=== PATIENT | female | born 1965 | race Caucasian/White ===

== ENCOUNTER → 2017-07-07 | Outpatient (CLI) | payer OTHER ==
[~2017-07-07] MED LIST: ACET500; ALBU90OI INH; ALLO100 PO; ALPR.5; AMOX500 PO; ATEN50 PO; AZIT250 PO; AZO; Adderall 20 MG20 MG PO; CARI350 PO; CEPH500 PO; CHLGLU.12S MT; CIPR500 PO; CLAR250 PO; CLON.5; CLON1; CLON1 PO; CODBUTASA PO; CRUTCH4 USE; CYCL10 PO; DOCU100 PO; DOXY100 PO; DULO60; GABA300 PO; HYDACE10B PO; HYDACE5 PO; HYDMOR2 PO; HYOS.125; IBUP600; IBUP600 PO; IBUP800 PO; LITH300C PO; LITHIUM; MELO7.5 PO; META800 PO; METO25ER; METO25ER PO; METO50ER; METR500 PO; MULVITMINE PO; NAPR500 PO; NAPR550 PO; OXYACE10 PO; OXYACE5T PO; OXYACE7.5T PO; PENVK250 PO; PENVK500 PO; PHENA200 PO; PRED10 PO; PRED5; Percocet 5-3251 EACH PO; QUET200 PO; QUET25; RXCEPH500 PO; RXCLIN PO; RXCYCL10 PO; RXHYDACE PO; RXOXYACE PO; RXPENVK250 PO; RXSULTRIDS PO; SULTRIDS PO; SUMA25; TRAM50; TRAM50 PO; VIVANCE; Vyvanse60 MG PO; ZOLP10 PO; ZOLP5; ZOLP5 PO
[2017-07-07 18:03] LABS: Protein, Urine Random 18.6 mg/dL (0.0-11.9)
== END | disposition home or self-care (01) ==
LOC: OLS 16:31
PROVIDERS: Internal Medicine
DX: N18.9 Chronic kidney disease, unspecified (principal)
CPT/HCPCS: 82570; 84156

== ENCOUNTER 2018-07-18 05:49 | Day surgery (SDC) | payer OTHER ==
[~2018-07-18] VITALS: Ht 167.6 cm; Wt 176.6 kg
[~2018-07-18 05:49] MED LIST changes: +LATUDA80 MG PO; +NICO2 PO; +NICO21TP TOP; +Vitamin D400 UNI1 PO
--- NOTE | 2018-07-18 06:42 | NUR ---
Ambulatory in Day Surgery History, Chart, Medications and Allergies reviewed before start of procedure. Lungs clear T/O to Auscultation. Patient confirms NPO status and agrees with scheduled surgery. Pre-Op teaching done. Pt verbalizes understanding. Patient States Post-Procedure ride home has been arranged.
--- NOTE | 2018-07-18 09:44 | NUR ---
INTO STEP VIA [facility]UR[facility]. PT A&OX3-REPORTS INCISIONAL PAIN 12/14. STERI-STRIPS X3 C/D/I. PT REQUESTS TO AMBULATE TO [facility]. ASSISTED PT TO BATHROOM-STANDBY ASSIST-TOLERATED WELL. NEIDA INITIATED-PT TOLERATED SIPS OF DIMITRI MIST WITHOUT DIFFICULTY.
--- NOTE | 2018-07-18 10:35 | NUR ---
Patient up to Ambulate independently. Gait steady. Dressing to procedure site clean, dry, intact with no visible drainage, swelling, erythema or bruising noted. Discharge instructions reviewed with patient. Patient verbalizes understanding. Copy given to patient to take home. Discharged via wheelchair to private car for ride home.
== END 2018-07-18 10:37 | disposition home or self-care (01) ==
LOC: ORSCMMR 05:49 → ORD 07:30 → ORSCMMR 07:30 → ORD 09:00 → ORSCMMR 10:37
PROVIDERS: Obstetrics & Gynecology
PROC: 0UT24ZZ Resection of Bilateral Ovaries, Percutaneous Endoscopic Approach (ICD-10-PCS; principal; 2018-07-18 07:30)
PROC: 0UT74ZZ Resection of Bilateral Fallopian Tubes, Percutaneous Endoscopic Approach (ICD-10-PCS; principal; 2018-07-18 07:30)
DX: R10.2 Pelvic and perineal pain (principal); N83.292 Other ovarian cyst, left side; N83.291 Other ovarian cyst, right side; Z87.42 Personal history of other diseases of the female genital tract; I10 Essential (primary) hypertension; F17.210 Nicotine dependence, cigarettes, uncomplicated; Z79.899 Other long term (current) drug therapy
CPT/HCPCS: 88305; J1100; J2250; J2405; J2710; J3010; J7120

== ENCOUNTER 2020-07-02 06:45 | Day surgery (SDC) | payer OTHER ==
[~2020-07-02] VITALS: Ht 167.6 cm; Wt 83.7 kg
[~2020-07-02 06:45] MED LIST changes: +AMLO5 PO; +Cipro500 MG PO; +Flagyl500 MG PO; +IMITREX100 MG PO; +Lisinopril10 MG PO
[2020-07-02] MEDS ORDERED: Xanax0.5 MG PO (07:23)
== END 2020-07-02 10:25 | disposition home or self-care (01) ==
LOC: ORSCSDS 06:45
PROVIDERS: Internal Medicine Gastroenterology
PROC: 0DBM8ZX Excision of Descending Colon, Via Natural or Artificial Opening Endoscopic, Diagnostic (ICD-10-PCS; principal; 2020-07-02 08:00)
PROC: 0DBE8ZX Excision of Large Intestine, Via Natural or Artificial Opening Endoscopic, Diagnostic (ICD-10-PCS; principal; 2020-07-02 08:00)
PROC: 0DBP8ZX Excision of Rectum, Via Natural or Artificial Opening Endoscopic, Diagnostic (ICD-10-PCS; principal; 2020-07-02 08:00)
PROC: 0DBN8ZX Excision of Sigmoid Colon, Via Natural or Artificial Opening Endoscopic, Diagnostic (ICD-10-PCS; principal; 2020-07-02 08:00)
PROC: 0DBK8ZX Excision of Ascending Colon, Via Natural or Artificial Opening Endoscopic, Diagnostic (ICD-10-PCS; principal; 2020-07-02 08:00)
DX: K92.1 Melena (principal); R10.84 Generalized abdominal pain; Z80.0 Family history of malignant neoplasm of digestive organs; D12.2 Benign neoplasm of ascending colon; D12.4 Benign neoplasm of descending colon; K63.5 Polyp of colon; K62.1 Rectal polyp; K64.4 Residual hemorrhoidal skin tags; I10 Essential (primary) hypertension; J43.9 Emphysema, unspecified
CPT/HCPCS: 88305; J0330; J0461; J2405; J2704; J7120

== ENCOUNTER 2022-04-05 10:26 | Emergency (ER) | payer OTHER ==
[~2022-04-05] VITALS: Ht 167.6 cm; Wt 88.0 kg
[~2022-04-05 10:26] MED LIST changes: +Xanax0.5 MG PO
[2022-04-05 12:39] LABS: BASOPHILS ABSOLUTE AUTO 0.05 K/mm3 (0.00-0.23); BASOPHILS PERCENT AUTO 1 % (0-2); EOSINOPHILS ABSOLUTE AUTO 0.11 K/mm3 (0.00-0.68); EOSINOPHILS PERCENT AUTO 1 % (0-6); Hematocrit 45.7 % (33.0-51.0); Hemoglobin 15.2 g/dL (11.5-16.0); IMMATURE GRAN ABSOLUTE AUTO 0.04 K/mm3 (0.00-0.10); IMMATURE GRAN PERCENT AUTO 0 % (0-1); LYMPHOCYTES ABSOLUTE AUTO 3.68 K/mm3 (0.84-5.20); LYMPHOCYTES PERCENT AUTO 38 % (21-46); MONOCYTES ABSOLUTE AUTO 0.62 K/mm3 (0.16-1.47); MONOCYTES PERCENT AUTO 6 % (4-13); Mean Corpuscular HGB 32.5 pg (26.0-34.0); Mean Corpuscular HGB Conc 33.3 g/dL (31.5-36.5); Mean Corpuscular Volume 98 fL (80-100); Mean Platelet Volume 8.6 fL (9.1-12.4); NEUTROPHILS PERCENT AUTO 54 % (41-73); Platelet Count 420 K/mm3 (150-400); RDW Coefficient Variation 12.4 % (11.7-14.2); RDW Standard Deviation 44.6 fL (35.1-46.3); Red Blood Cell Count 4.67 M/mm3 (3.80-5.20)
[2022-04-05 12:45] LABS: International Normalized Ratio 0.93; Prothrombin Time Results 9.8 Sec (9.7-11.5)
[2022-04-05 12:48] LABS: Albumin/Globulin Ratio 1.1 (0.8-1.8); Bilirubin, Total 0.3 mg/dL (0.1-1.0); Bun/Creatinine Ratio 19.1 (12.0-20.0); Calcium, Blood 9.4 mg/dL (8.5-10.1); Creatinine, Blood 0.73 mg/dL (0.40-1.00); Globulin, Blood 3.5 g/dL (2.2-4.0); Potassium, Blood 3.9 mmol/L (3.5-5.5); Total Protein, Blood 7.5 g/dL (6.4-8.2)
[2022-04-05 12:59] LABS: Source, Urine Clean Catch
[2022-04-05 13:04] LABS: Appearance, Urine Hazy (Clear); Bilirubin, Urine Neg (Neg); Blood, Urine 2+ (Neg); Color, Urine Yellow (P-Yellow); Glucose Qualitative, Urine Neg (Neg); Ketones, Urine Neg (Neg); Leukocyte Esterase, Urine Neg (Neg); Nitrite, Urine Neg (Neg); Protein, Urine Neg (Neg); Urobilinogen, Urine NORM (Normal)
[2022-04-05 14:48] LABS: Red Blood Cells, Urine 0-2 /hpf (0-2); White Blood Cells, Urine 0-2 /hpf (0-5)
[2022-04-05 14:49] LABS: Amorphous Light (0-Heavy); Bacteria Many /hpf; Mucus Light (0-Heavy); Squamous Epithelial Cells Mod /hpf (Few); Transitional Epithelial Cells Rare /hpf (0-Rare)
== END 2022-04-05 15:25 | disposition home or self-care (01) ==
LOC: ER 10:26
PROVIDERS: Student in an Organized Health Care Education/Training Program
DX: K92.2 Gastrointestinal hemorrhage, unspecified (principal); R10.9 Unspecified abdominal pain; I10 Essential (primary) hypertension; Z79.899 Other long term (current) drug therapy; Z87.891 Personal history of nicotine dependence
CPT/HCPCS: 36415; 74177; 80053; 81001; 82272; 83690; 85025; 85610; 96374-59; 96376; 99284-25; J3010; Q9967